=== PATIENT | female | born 1990 | race Caucasian/White ===

== ENCOUNTER 2018-10-27 13:34 | Emergency (ER) | payer OTHER, SELFPAY ==
[2018-10-27 13:57] VITALS: BP 123/82; PULSE 109; RESP 18; TEMP 37.6; O2SAT 96
[2018-10-27] MEDS: IBUPROFEN 400 MG TABLET 800 MG PO (15:20)
--- NOTE | 2018-10-27 15:28 | ED_ITS ---
HPI - URI/Sore Throat <Talia Melo PA-C - Last Filed: 10/27/18 19:05> General Chief Complaint: Upper Respiratory Symptoms Stated Complaint: cough/fever/n&v/sore throat x2 days Time Seen by Provider: 10/27/18 14:14 Source: patient Mode of arrival: ambulatory Limitations: no limitations History of Present Illness HPI Narrative: This 28-year-old female comes to ED secondary to upper resp iratory symptoms that started yesterday. She complains of fairly rapid onset of wet cough, followed by sore throat. Today, she states the cough and sore throat are actually little bit better but she coughed so hard 1 time she vomited up some bilious material. She states that she had difficulty sleeping last night due to the cough. She states her chest hurts with the cough and she has some air hunger sensation with coughing, otherwise no wheeze or dyspnea. She noted a temperature of 100.6? at home earlier so thought she should have this evaluated. She is not having sinus pain or earache. She states cough was worse last night, overall somewhat better today. She denies any rash. She denies any new pain or swelling in her extremities. She denies any recent travel or specific known exposures but symptoms did develop after she was working in her office when before she was being out in the field. She has not taken any medications for this. She denies any possibility of . She does have history of seasonal allergies with reactive airways. Related Data Previous Rx's Medication Instructions Recorded albuterol sulfate 2 inhalation INHALATION Q4H PRN 10/27/18 #8.5 gram promethazine-codeine 5 ml PO Q4-6H PRN #120 ml 10/27/18 Allergies Allergy/AdvReac Type Severity Reaction Status Date / Time amoxicillin Allergy Rash Verified 10/27/18 13:57 Review of Systems <Talia Melo PA-C - Last Filed: 10/27/18 19:05> Review of Systems ROS Unobtainable: All systems reviewed & are unremarkable except as noted in HPI and below PFSH <Talia Melo PA-C - Last Filed: 10/27/18 19:05> Medical History (Updated 10/27/18 @ 15:27 by Talia Melo PA-C) Seasonal allergies (Chronic) Reactive airways dysfunction syndrome (Chronic) Surgical History (Updated 10/27/18 @ 15:27 by Talia Melo PA-C) Status post tonsillectomy (Resolved) Social History Smoking Status: Never smoker Social History Smoking Status: Never smoker Exam <Talia Melo PA-C - Last Filed: 10/27/18 19:05> Narrative Exam Narrative: GENERAL APPEARANCE: Patient sitting comfortably, in no distress. HEAD: No sinus TTP. EYES: PERRL, EOMI. EARS: Normal auditory canals, TMS intact with normal light reflexes. ORAL CAVITY: Normal oropharynx. THROAT: Erythematous without exudate NECK/THYROID: Neck supple, full range of motion, shotty anterior cervical lymphadenopathy. LUNGS: Clear to auscultation bilaterally, occasional wet cough on exam. HEART: RRR without murmur, nl S1, S2, no S3 or S4. DERMATOLOGIC: No exanthem Initial Vital Signs Initial Vital Signs: Vital Signs Temperature 99.7 F H 10/27/18 13:57 Pulse Rate 109 H 10/27/18 13:57 Respiratory Rate 18 10/27/18 13:57 Blood Pressure 123/82 10/27/18 13:57 Pulse Oximetry 96 10/27/18 13:57 <David Rodriguez DO - Last Filed: 10/28/18 07:51> Initial Vital Signs Initial Vital Signs: Vital Signs Temperature 99.7 F H 10/27/18 13:57 Pulse Rate 109 H 10/27/18 13:57 Respiratory Rate 18 10/27/18 13:57 Blood Pressure 123/82 10/27/18 13:57 Pulse Oximetry 96 10/27/18 13:57 Course <Talia Melo PA-C - Last Filed: 10/27/18 19:05> Orders Ordered: Discontinued Medications Ibuprofen (Advil) 800 mg PO NOW ONE Stop: 10/27/18 15:18 Last Admin: 10/27/18 15:20 Dose: 800 mg Vital Signs - 8 hr 10/27/18 13:57 Temperature 99.7 F H Pulse Rate 109 H Respiratory Rate 18 Blood Pressure 123/82 Pulse Oximetry 96 <David Rodriguez DO - Last Filed: 10/28/18 07:51> Orders Ordered: Discontinued Medications Ibuprofen (Advil) 800 mg PO NOW ONE Stop: 10/27/18 15:18 Last Admin: 10/27/18 15:20 Dose: 800 mg Vital Signs - 8 hr 10/27/18 13:57 Temperature 99.7 F H Pulse Rate 109 H Respiratory Rate 18 Blood Pressure 123/82 Pulse Oximetry 96 MDM - URI/Sore Throat <Talia Melo PA-C - Last Filed: 10/27/18 19:05> Lab Data Point of Care Testing Rapid Strep A Negative <Dvaid Rodriguez DO - Last Filed: 10/28/18 07:51> Lab Data Point of Care Testing Rapid Strep A Negative Discharge Plan Departure Patient Disposition: Home Clinical Impression: Upper respiratory infection Qualifiers: URI type: unspecified viral URI Qualified Code(s): J06.9 - Acute upper respiratory infection, unspecified Discharge Date/Time: 10/27/18 15:25 Interventions: ED Discharge Assessment Last Done: 10/27/18 15:26 Instructions: DI for Viral Upper Respiratory Infection -- Adult Activity Restrictions/Additional Instructions: As we talked about, you should return if you have any acutely worsening symptoms. Otherwise, please try the prescription cough syrup at bedtime tonight to help you sleep. You can take it during the day as well, but do not drive as it can make you drowsy. Please use the inhaler as needed if you have shortness of breath or wheezing. You can also add [id number] Mucinex (guaifenesin) to help thin secretions. Also please take ibuprofen, 600-800 mg (3-4 gvua-sxl-azrbkhy tablets) every 8 hours to help with pain and fever, and you can add Tylenol as needed. Please follow-up with your PCP if you are not feeling better in the next week as most of these types of infections resolve within 7-10 days. Prescriptions: New promethazine-codeine 6.25-10 mg/5 mL syrup 5 ml PO Q4-6H PRN (Reason: cough) Qty: 120 RF: 0 albuterol sulfate 90 mcg/actuation HFA aerosol inhaler 2 inhalation INHALATION Q4H PRN (Reason: shortness of breath or wheezing) Qty: 8.5 RF: 0 Referrals: [facility] [Provider Group] <David Rodriguez, DO - Last Filed: 10/28/18 07:51> Cosign ED Attending Cosignature Attestation: I was immediately available in the department for consultation. Documentation has been reviewed. I agree with assessment and plan.
== END 2018-10-27 15:25 | disposition home or self-care (01) ==
PROVIDERS: Emergency Provider Internal Medicine
DX: J06.9 Acute upper respiratory infection, unspecified (principal)
CPT/HCPCS: 87880; 99282; 99283